=== PATIENT | female | born 1965 | race Caucasian/White ===

== ENCOUNTER 2017-07-15 08:30 | Emergency (ER) | payer OTHER ==
[~2017-07-15] VITALS: Ht 157.5 cm; Wt 81.6 kg
[~2017-07-15 08:30] MED LIST: PREDNISONE10 MG PO; VICODIN5-300 PO
--- NOTE | 2017-07-15 09:00 | ED NOSE COMPLAINT ---
History of Present Illness General Chief Complaint: General Adult Stated Complaint: EPITAXIS Source: patient, family Exam Limitations: no limitations Vital Signs & Intake/Output Vital Signs & Intake/Output Vital Signs Date Time Temp Pulse Resp B/P B/P Pulse O2 O2 Flow FiO2 Mean Ox Delivery Rate 07/15 1103 83 15 113/82 98 Room Air Room Air 07/15 0833 98.4 114 18 155/100 98 Room Air Allergies Coded Allergies: Anesthetics - Amide Type (Severe, HX OF SEVERE REACTION 07/15/17) Penicillins (Intermediate, RASH 07/15/17) pollen extracts (Mild, RUNNY NOSE/ITCHING EYES 07/15/17) Reconcile Medications Aspirin (Aspirin*) 81 MG TAB.CHEW 1 TAB PO DAILY HEART HEALTH (Reported) Azithromycin 250 MG TABLET 1 DP PO AD ppx 2 the first day followed by 1 for days 2-5 Cetirizine HCl (Zyrtec) 10 MG TABLET 1 TAB PO DAILY ALLERGIES (Reported) Cyanocobalamin (Vitamin B-12) 1,000 MCG TABLET 1 TAB PO DAILY VITAMIN SUPPORT (Reported) Cyclobenzaprine HCl 5 MG TABLET 1 TAB PO TIDPRN muscle spasm Lisinopril (Prinivil) 10 MG TABLET 1 TAB PO DAILY HEART (Reported) Triage Note: 51 YO FEMALE TO TRIAGE FOR NOSEBLEED SINCE 5 AM. NOTED TO BE ACTIVELY BLEEDING IN TRIAGE, +BLOOD CLOTS. STATES HAD A NOSE BLEED LAST WEEK, TAKES BABY ASA DAILY. Triage Nurses Notes Reviewed? yes Onset: Abrupt Duration: hour(s):, day(s): (3) Timing: single episode today (ONGOING) Injury Environment: home Severity: moderate Associated Symptoms: chest pain HPI: 51-year-old female with history of hypertension and factor V Leiden deficiency presents to the ER with sudden onset of bilateral epistaxis this morning. Woke out of sleep with large volume bleeding. Previously had prior episode that resolved with pressure. No relief today with pressure. Not on any other blood thinners except for aspirin. (Carrillo Jonas) Past History Travel History Traveled to [place] past 21 day No Medical History Any Pertinent Medical History? see below for history Cardiovascular: hypertension Blood Disorders: FACTOR 5 Surgical History Surgical History: none Psychosocial History What is your primary language Serbian Tobacco Use: Never used Family History Hx Contributory? No (Carrillo Jonas) Review of Systems Review of Systems Constitutional: Denies: no symptoms. Comments Review of systems: See HPI, All other systems negative. Constitutional, no chills no fever, no malaise no weight loss HEENT: no sore throat no congestion, positive right ear pain Cardiovascular: Left-sided chest pain , no palpitation Skin: no rashes, no change in skin Respiratory: No dyspnea no cough GI: No nausea no vomiting, no diarrhea, no bloating/constipation : No dysuria No hematuria, no frequency Muscle skeletal: Chronic neck and back pain. Radiating around to the front chest. Left side. Neurologic: , no headache Psych: No stress no depression,. Heme/endocrine: Epistaxis as above. Immunology: No lymphadenopathy (Carrillo Jonas) Physical Exam Physical Exam Ears: Bilateral: canal normal, Tympanic normal, bleeding, discharge, erythema. Nose: active bleeding Comments: Well-developed well-nourished person in no acute distress Head/Face: Atraumatic, no maxillary/frontal sinus tenderness, no facial swelling Eyes: PERRL, EOMI, no conjunctival injection. No nystagmus Ear:External auditory canal and Tympanic membranes clear, no erythema, no FB. Nose: atraumatic.Normal inspection: No bleeding, no septal hematoma Throat: Moist mucous membranes.Pharynx normal. No pharyngeal erythema/exudate seen. No stridor/drooling or assymetry. No swelling or edema. Neck: Supple, no lymphadenopathy, FROM Cardiovascular: Regular rate and rhythms no murmurs rubs or gallops, normal JVP Respiratory: Chest nontender.There were no bony deformities, no asymmetry. No respiratory distress. Patient speaking in full complete sentences. Breath sounds clear to auscultation bilaterally: NO W/R/R Neuro: Alert oriented x3, motor sensory normal Skin: No appreciable rash on exposed skin, skin is warm and dry. Psych: Mood and affect is normal, memory and judgment is normal. (Carrillo Jonas) Progress Differential Diagnoses I considered the following diagnoses in my evaluation of the patient: [Epistaxis , acute ID, musculoskeletal chest pain] Plan of Care: Orders Procedure Date/time Status TROPONIN LEVEL 07/15 921 Complete PARTIAL THROMBOPLASTIN TIME 07/15 921 Complete PROTHROMBIN TIME 07/15 921 Complete COMPREHENSIVE METABOLIC PANEL 07/15 921 Complete CBC WITHOUT DIFFERENTIAL 07/15 921 Complete EKG 07/15 921 Active Laboratory Tests 07/15/17943: Anion Gap 9, Estimated GFR > 60, BUN/Creatinine Ratio 17.1, Glucose 120 H, Calcium 9.1, Total Bilirubin 0.7, AST 41 H, ALT 71 H, Alkaline Phosphatase 58, Troponin I < 0.01, Total Protein 7.1, Albumin 4.0, Globulin 3.1, Albumin/ Globulin Ratio 1.3, PT 11.0, INR 1.01, APTT 27, CBC w Diff NO MAN DIFF REQ, RBC 4.13 L, MCV 89.1, MCH 29.9, MCHC 33.6, RDW 12.7, MPV 7.3 L, Gran % 57.6, Lymphocytes % 29.6, Monocytes % 8.0, Eosinophils % 4.2, Basophils % 0.6, Absolute Granulocytes 3.7, Absolute Lymphocytes 1.9, Absolute Monocytes 0.5, Absolute Eosinophils 0.3, Absolute Basophils 0 After the patient had the Rhino Rocket placed she developed left-sided chest pain, it is reproducible with palpation she was medicated Percocet for her chronic neck pain labs ordered. Case discussed with Dr. Schafer agrees plan ATIENT: INGRIDSURESHSHERIF PRESENT AGE: 51 PATIENT ACCOUNT NO: [id number] : 64 LOCATION: [facility] ([place]) ORDERING PHYSICIAN: Carrillo STOVER SERVICE DATE: 07/15/17 EXAM TYPE: RAD - XRY-PORTABLE CHEST XRAY EXAMINATION: XR PORTABLE CHEST CLINICAL INFORMATION: Chest pain COMPARISON: None TECHNIQUE: Portable frontal view of the chest was obtained. FINDINGS: No significant abnormality is noted involving the heart, lungs, mediastinum, bony thorax or soft tissues. IMPRESSION: Unremarkable examination. DICTATED BY: Jarrett Isidro MD DATE/TIME DICTATED:07/15/17943 WALLPAPER CONSULTANT:LEVAR DATE/TIME TRANSCRIBED:07/15/17943 CONFIDENTIAL, DO NOT COPY WITHOUT APPROPRIATE AUTHORIZATION. <Electronically signed in Other Vendor System> SIGNED BY: Jarrett Isidro MD 07/15/17947 1100 discussed with the patient plan of care and all of her labs. She states that her liver functions are normally elevated, copy was provided to her she's had no residual bleeding, discussed with her plan of care with the Rhino Rocket information for follow-up with ENT was provided I answered all her questions she feels comfortable with plan at this time Diagnostic Imaging: Viewed by Me: Radiology Read. Discussed w/RAD: Radiology Read. Initial ED EKG: normal sinus rhythm, Sinus rhythm, 70, NS changes (Carrillo Jonas) Departure Departure Disposition: HOME OR SELF CARE Condition: Stable Clinical Impression Primary Impression: Epistaxis Secondary Impressions: Chest pain, atypical Referrals: Magdaleno RICHARDS,Nikky Mckay Unknown (PCP/Family) Additional Instructions: Take Zithromax as directed. Follow-up with ENT. Return to ER on Tuesday07/17/17 for removal of Rhino Rocket. Return sooner for any other concerns. Departure Forms: Customer Survey General Discharge Information Prescriptions: Current Visit Scripts Azithromycin 1 DP PO AD #6 TAB 2 the first day followed by 1 for days 2-5 Cyclobenzaprine HCl 1 TAB PO TIDPRN #10 TAB (Carrillo Jonas) PA/FUR BLENDER Co-Sign Statement Statement: ED Attending supervision documentation- [] I saw and evaluated the patient. I have also reviewed all the pertinent lab results and diagnostic results. I agree with the findings and the plan of care as documented in the PA's/FUR BLENDER's documentation. [X] I have reviewed the ED Record and agree with the PA's/FUR BLENDER's documentation. [] Additions or exceptions (if any) to the PAs/FUR BLENDER's note and plan are summarized below: [] (Hanh RICHARDS,Pardeep Bravo) Procedures Epistaxis/Nasal Foreign Body Status: bleeding Nasal Drops Instilled: Right: Afphrin. Inspected With: otoscope Bleeding Site: Right sided Nasal Rocket: Right: Inserted Anterior. Progress: rhino rocket instilled with thrombin with good results. Will continue to monitor. (Carrillo Jonas) ED Attending Observation Initial Observation Note: I have seen and personally examined SHERIF CORDERO on 07/15/17 at 1040. I agree with the current emergency department documentation. The disposition (admission or discharge) is uncertain at this time, she needs a period of observation for the following reason(s): The ED Nurse caring for this patient has been personally informed as to what the patient is being observed for. (Carrillo Jonas)
--- NOTE | 2017-07-15 09:48 | RADIOLOGY REPORT ---
EXAMINATION: XR PORTABLE CHEST CLINICAL INFORMATION: Chest pain COMPARISON: None TECHNIQUE: Portable frontal view of the chest was obtained. FINDINGS: No significant abnormality is noted involving the heart, lungs, mediastinum, bony thorax or soft tissues. IMPRESSION: Unremarkable examination.
[2017-07-15 09:57] LABS: ABSOLUTE BASOPHIL COUNT 0 /CUMM (0.0-0.2); ABSOLUTE EOSINOPHIL COUNT 0.3 /CUMM (0.0-0.7); ABSOLUTE GRANULOCYTE CT 3.7 /CUMM (1.4-6.5); ABSOLUTE LYMPH COUNT 1.9 /CUMM (1.2-3.4); ABSOLUTE MONOCYTE COUNT 0.5 /CUMM (0.10-0.60); BASOPHIL % 0.6 % (0.0-2.0); EOSINOPHIL % 4.2 % (0-5); GRANULOCYTE % 57.6 % (42.2-75.2); HEMATOCRIT 36.8 % (37-47); MEAN CORPUSCULAR HGB 29.9 PG (27.0-31.0); MEAN CORPUSCULAR HGB CONC 33.6 G/DL (33.0-37.0); MEAN CORPUSCULAR VOLUME 89.1 FL (81.0-99.0); MEAN PLATELET VOLUME 7.3 FL (7.4-10.4); PLATELET COUNT 274 /CUMM (130-400); RBC DISTRIBUTION WIDTH 12.7 % (11.5-14.5); RED BLOOD CELL CT 4.13 /CUMM (4.20-5.40); WHITE BLOOD CELL COUNT 6.5 /CUMM (4.8-10.8)
[2017-07-15] MEDS ORDERED: ASPIRIN81 M4 PO (10:01)
[2017-07-15] MEDS ORDERED: PRINIVIL10 M1 PO (10:01)
[2017-07-15] MEDS ORDERED: VITAMIN B-121000 MC3 PO (10:01)
[2017-07-15] MEDS ORDERED: ZYRTEC10 M3 PO (10:02)
[2017-07-15 10:09] LABS: PTT 27 SEC (25-37)
[2017-07-15] MEDS ORDERED: AZITHROMYCIN250 M1 PO (10:46)
[2017-07-15] MEDS ORDERED: CYCLOBENZAPRINE5 M2 PO (10:58)
[2017-07-15 11:03] VITALS: BP 113/82
== END 2017-07-15 11:05 ==
LOC: ERH 08:30
PROVIDERS: Physician Assistant Medical
DX: R04.0 Epistaxis (principal); R07.89 Other chest pain
CPT/HCPCS: 71045; 93005; 93010

== ENCOUNTER 2017-07-17 12:15 | Emergency (ER) | payer OTHER ==
[~2017-07-17] VITALS: Ht 157.5 cm; Wt 81.6 kg
[~2017-07-17 12:15] MED LIST changes: +ASPIRIN81 M4 PO; +AZITHROMYCIN250 M1 PO; +CYCLOBENZAPRINE5 M2 PO; +PRINIVIL10 M1 PO; +VITAMIN B-121000 MC3 PO; +ZYRTEC10 M3 PO
[2017-07-17 12:20] VITALS: BP 130/92
--- NOTE | 2017-07-17 12:30 | ED NOSE COMPLAINT ---
History of Present Illness General Chief Complaint: Suture Removal/Wound Recheck Stated Complaint: WOUND CHECK Source: patient Exam Limitations: no limitations Vital Signs & Intake/Output Vital Signs & Intake/Output Vital Signs Date Time Temp Pulse Resp B/P B/P Pulse O2 O2 Flow FiO2 Mean Ox Delivery Rate 07/17 1220 97.6 91 18 130/92 98 Room Air Allergies Coded Allergies: Anesthetics - Amide Type (Severe, HX OF SEVERE REACTION 07/15/17) Penicillins (Intermediate, RASH 07/15/17) pollen extracts (Mild, RUNNY NOSE/ITCHING EYES 07/15/17) Reconcile Medications Aspirin (Aspirin*) 81 MG TAB.CHEW 1 TAB PO DAILY HEART HEALTH (Reported) Azithromycin 250 MG TABLET 1 DP PO AD ppx 2 the first day followed by 1 for days 2-5 Cetirizine HCl (Zyrtec) 10 MG TABLET 1 TAB PO DAILY ALLERGIES (Reported) Cyanocobalamin (Vitamin B-12) 1,000 MCG TABLET 1 TAB PO DAILY VITAMIN SUPPORT (Reported) Cyclobenzaprine HCl 5 MG TABLET 1 TAB PO TIDPRN muscle spasm Lisinopril (Prinivil) 10 MG TABLET 1 TAB PO DAILY HEART (Reported) Triage Note: PT WAS TOLD TO COME BACK TO THE ED FOR RE-EVALUATION OF EPISTAXIS. RHINO ROCKET NOTED TO THE RIGHT NOSTRIL SINCE THIS PAST TUESDAY Triage Nurses Notes Reviewed? yes Onset: Gradual Duration: gone now Injury Environment: home Severity: moderate Severity Numbers: 5 HPI: Patient is a 51-year-old female with a past medical history of hypertension and factor V Leiden deficiency ON aspirin, WHO PRESENTED TO THE emergency with concerns that 3 days ago she had bilateral nosebleeds where old records indicates the patient had a Rhino Rocket placed to right nares. Patient currently is on azithromycin and cyclobenzaprine for symptoms, patient has not had any reoccurrence of bleeding since. Patient has follow-up appointment this week with ENT DOCTOR Patient presents with request of removal of the Rhino Rocket (Carrillo Buenrostro) Past History Travel History Traveled to [place] past 21 day No Medical History Any Pertinent Medical History? see below for history Cardiovascular: hypertension Blood Disorders: FACTOR 5 Surgical History Surgical History: none Psychosocial History What is your primary language Urdu Tobacco Use: Never used Family History Hx Contributory? No (Carrillo Buenrostro) Review of Systems Review of Systems Constitutional: Reports: no symptoms. EENTM: Reports: see HPI. Respiratory: Reports: no symptoms. Cardiovascular: Reports: no symptoms. GI: Reports: no symptoms. Genitourinary: Reports: no symptoms. Musculoskeletal: Reports: no symptoms. Skin: Reports: no symptoms. Neurological/Psychological: Reports: no symptoms. Hematologic/Endocrine: Reports: no symptoms. Immunologic/Allergic: Reports: no symptoms. All Other Systems: Reviewed and Negative (Carrillo Buenrostro) Physical Exam Physical Exam General Appearance: no apparent distress, alert, comfortable Head: atraumatic Eyes: Bilateral: normal appearance. Nose: RIGHT NARES RHINO ROCKET IN PLACE Mouth/Throat: normal mouth inspection, pharynx normal Cardiovascular/Respiratory: regular rate/rhythm, no respiratory distress Neurologic/Psych: no motor/sensory deficits, awake Skin: intact, normal color (Carrillo Buenrostro) Progress Differential Diagnoses I considered the following diagnoses in my evaluation of the patient: [Anterior epistasis posterior epistasis coagulopathy] Plan of Care: Patient shows no signs of active bleeding the Rhino Rocket was removed without complications reexamination of the right naris was unremarkable no active bleeding. Patient was given instructions of direct pressure application with gauze and tongue depressors and was strongly advised to follow-up with ENT doctor this week as they have an appointment. Initial ED EKG: none (Carrillo Buenrostro) Departure Departure Disposition: HOME OR SELF CARE Condition: Stable Clinical Impression Primary Impression: Bleeding nose Referrals: Unknown (PCP/Family) Additional Instructions: As discussed if symptoms worsen or if YOU develop any new concerning symptom apply pressure with the tongue depressors AND THE GUAZE provided to YOU IN the emergency room and if no better 20 minutes and bleeding continues return to emergency room. This week follow-up with your established ENT DOCTOR. Departure Forms: Customer Survey General Discharge Information (Carrillo Buenrostro) PA/SUPERVISOR MOLD SHOP Co-Sign Statement Statement: ED Attending supervision documentation- I saw and evaluated the patient. I have also reviewed all the pertinent lab results and diagnostic results. I agree with the findings and the plan of care as documented in the PA's/SUPERVISOR MOLD SHOP's documentation. x I have reviewed the ED Record and agree with the PA's/SUPERVISOR MOLD SHOP's documentation. [] Additions or exceptions (if any) to the PAs/SUPERVISOR MOLD SHOP's note and plan are summarized below: [] (Leeroy RICHARDS,Rigoberto)
== END 2017-07-17 13:15 ==
LOC: ERH 12:15
DX: R04.0 Epistaxis (principal)
CPT/HCPCS: 99282